=== PATIENT | male | born 1970 | race Caucasian/White ===

== ENCOUNTER 2016-10-09 11:02 | Emergency (ER) | payer OTHER ==
[~2016-10-09] VITALS: Ht 172.7 cm; Wt 65.8 kg
[2016-10-09] MEDS ORDERED: ZIPR80CA2 PO (11:09)
[2016-10-09] MEDS ORDERED: DIPH,PERTUSS(ACELL),TET VAC/PF 0.5 ML IM-VACC ONE ×2 (12:09→12:30)
[2016-10-09] MEDS ORDERED: IBUPROFEN 200 MG TABLET ONE (12:09)
[2016-10-09 12:23] LABS: HEMOGLOBIN 14.1 g/dL (13.7-18.0)
[2016-10-09] MEDS ORDERED: IBUPROFEN 200 MG TABLET PO ONE (12:30)
[2016-10-09 13:54] VITALS: BP 100/61
== END 2016-10-09 13:56 | disposition home or self-care (01) ==
LOC: ED 13:50
DX: L03.116 Cellulitis of left lower limb (principal); M70.42 Prepatellar bursitis, left knee; B99.9 Unspecified infectious disease; F17.210 Nicotine dependence, cigarettes, uncomplicated
CPT/HCPCS: 36415; 85025; 90471; 90715

== ENCOUNTER 2018-12-05 11:44 | Emergency (ER) | payer SELFPAY ==
[~2018-12-05] VITALS: Ht 175.3 cm; Wt 75.0 kg
[~2018-12-05 11:44] MED LIST: ZIPR80CA2 PO
[2018-12-05 11:51] VITALS: BP 116/83
[2018-12-05] MEDS ORDERED: ZIPRASIDONE 20MG CAPSULE PO SCH (12:00)
--- NOTE | 2018-12-05 12:18 | NUR ---
ASSUMING PT CARE AT THIS TIME. PT RESTING ON [facility]. ALL SAFETY MEASURES OBTAINED. SITTER AT DOORWAY.L
--- NOTE | 2018-12-05 12:21 | NUR ---
48 Y/O MALE BIB AMBULANCE AND [employer] ON LEGAL HOLD. PER PT "I WAS TRESPASSING AT THE POLICE STATION AND THEY BROUGHT ME HERE FOR THAT." PT DENIES HI/SI. NO C/O N/V/D, TRAUMA, SYNCOPE, CP. PT ROOM SECURED. SITTER AT DOOR, PT WITHIN FULL VIEW. WILL CONTINUE TO MONITOR.
[2018-12-05 12:38] LABS: ALBUMIN 3.5 g/dL (3.4-5.0); ANION GAP 9 mmol/L (5-15); CALCIUM 8.7 mg/dL (8.5-10.1); CHLORIDE 104 mmol/L (98-107); SALICYLATE LEVEL 2.4 mg/dL (2.8-20.0)
--- NOTE | 2018-12-05 12:38 | NUR ---
ASSISTED PT WITH URINAL.PT UNABLE TO PROVIDE URINE SAMPLE AT THIS TIME. WILL CONTINUE TO MONITOR.
[2018-12-05] MEDS ORDERED: ZIPRASIDONE 20MG CAPSULE ONE (12:39)
[2018-12-05 12:41] LABS: ACETAMINOPHEN < 2 mcg/mL (10-30); ALANINE AMINOTRANSFERASE 89 U/L (12-78); ALKALINE PHOSPHATASE 75 U/L (45-117); BILIRUBIN,TOTAL 0.8 mg/dL (0.2-1.0); CREATININE 0.74 mg/dL (0.7-1.3); TOTAL PROTEIN 6.2 g/dL (6.4-8.2)
[2018-12-05 12:49] LABS: BASOPHILS # (AUTO) 0.05 x10^3/uL (0-0.1); BASOPHILS % (AUTO) 1 % (0-1); EOSINOPHILS # (AUTO) 0.03 x10^3/uL (0-0.4); EOSINOPHILS % (AUTO) 0 % (1-7); LYMPHOCYTES % (AUTO) 23 % (22-44); MD NO; MEAN CORPUSCULAR HEMOGLOBIN 29.4 pg (27.5-34.5); MEAN CORPUSCULAR HGB CONC 32.4 g/dL (33.2-36.2); MEAN CORPUSCULAR VOLUME 90.9 fL (81-97); MEAN PLATELET VOLUME 7.5 fL (7.4-10.4); MONOCYTES # (AUTO) 1.05 x10^3/uL (0.2-0.8); MONOCYTES % (AUTO) 11 % (2-9); NEUTROPHILS # (AUTO) 6.04 x10^3/uL (1.8-6.8); NEUTROPHILS % (AUTO) 65 % (42-75); PLATELET COUNT 360 x10^3/uL (130-400); RED BLOOD COUNT 4.56 x10^6/uL (4.38-5.82); RED CELL DISTRIBUTION WIDTH 13.5 % (9.4-14.8)
--- NOTE | 2018-12-05 13:46 | NUR ---
PT NOW SLEEPING ON [employer]. NO ACUTE DISTRESS NOTED. ALL SAFETY MEASURES OBTAINED. SITTER AT DOORWAY.
--- NOTE | 2018-12-05 13:48 | NUR ---
LATE ENTRY FOR 1330: PT UNABLE TO GIVE URINE SAMPLE. PT WAS GIVEN URINAL TO TRY AGAIN. PT WAS ALSO GIVEN WATER.
--- NOTE | 2018-12-05 14:52 | NUR ---
UA TO LAB. DIET TRAY ORDERED FOR PT. PT SITTING ON GURNEY. NO ACUTE DISTRESS NOTED. PT TALKS TO HIMSELF AT TIMES. ALL SAFETY MEASURES OBTAINED.
--- NOTE | 2018-12-05 15:05 | NUR ---
DIET TRAY DELIVERED.
[2018-12-05] MEDS ORDERED: LORazepam 1MG TABLET ONE (15:16)
[2018-12-05] MEDS ORDERED: LORazepam 1MG TABLET PO ONE (15:30)
[2018-12-05 15:31] LABS: AMPHETAMINE SCREEN, URINE Positive (Negative); BARBITURATE SCREEN, URINE Negative (Negative); BENZODIAZEPINE SCREEN, URINE Positive (Negative); CANNABINOID SCREEN, URINE Positive (Negative); COCAINE SCREEN, URINE Negative (Negative); METHADONE SCREEN, URINE Negative (Negative); OPIATE SCREEN, URINE Negative (Negative)
--- NOTE | 2018-12-05 16:31 | NUR ---
SW HAS PLACED TELE PSYCH BEDSIDE. PT VERBALIZES UNDERSTANDING REGARDING SPEAKING TO THE DR WHEN HE/SHE COMES ON. NO ACUTE DISTRESS NOTED. PT GIVEN SOCKS AND WARM BLANKET. NO NEEDS REQUESTED AT THIS TIME
--- NOTE | 2018-12-05 17:34 | NUR ---
Patient/Caregiver given discharge instructions and they have confirmed that they understand the instructions. Patient ambulatory with steady gait. PT STILL DENIES HI/SI. PT LEFT WITH ALL PERSONAL BELONGINGS. PT GIVEN TAXI VOUCHER.
== END 2018-12-05 17:55 | disposition home or self-care (01) ==
LOC: ED 12:50
DX: F15.959 Other stimulant use, unspecified with stimulant-induced psychotic disorder, unspecified (principal); F20.0 Paranoid schizophrenia; F31.9 Bipolar disorder, unspecified
CPT/HCPCS: 36415; 80053; 80307; 85025; 99284

== ENCOUNTER 2019-06-11 03:17 | Emergency (ER) | payer MEDICARE ==
[~2019-06-11] VITALS: Ht 172.7 cm; Wt 62.7 kg
[~2019-06-11 03:17] MED LIST changes: +DOXE25CA PO; +FLUP2.5T PO; +HYDR50TA13 PO; +NICO-486 TD; +PANT40TA5 PO; +QUET200T PO
[2019-06-11 03:23] VITALS: BP 108/74
--- NOTE | 2019-06-11 03:40 | NUR ---
INITIAL CONTACT WITH PT. ASSESSMENT DONE. PT WAITING TO BE SEEN BY .
[2019-06-11] MEDS ORDERED: ACETAMINOPHEN 325 MG TABLET PO ONE (04:00)
[2019-06-11] MEDS ORDERED: ACETAMINOPHEN 325 MG TABLET ONE (04:42)
--- NOTE | 2019-06-11 04:49 | NUR ---
PT DC'D HOME WITH RX X 1 AND UNDERSTANDING OF INSTRUCTIONS. PT PROVIDED WITH BUS PASS.
== END 2019-06-11 04:51 | disposition home or self-care (01) ==
LOC: ED 03:43
DX: G43.909 Migraine, unspecified, not intractable, without status migrainosus (principal); R94.31 Abnormal electrocardiogram [ECG] [EKG]; Z72.9 Problem related to lifestyle, unspecified
CPT/HCPCS: 93005; 99283

== ENCOUNTER 2019-11-19 00:52 | Emergency (ER) | payer MEDICARE ==
[~2019-11-19] VITALS: Ht 170.2 cm; Wt 71.5 kg
[~2019-11-19 00:52] MED LIST changes: -FLUP2.5T PO; +FLUP2.5T3 PO; -HYDR50TA13 PO; +HYDR50TA99 PO
[2019-11-19 00:53] VITALS: BP 117/72
--- NOTE | 2019-11-19 01:22 | NUR ---
TANNA RN: ERP IN TO [facility] PT.
== END 2019-11-19 01:53 | disposition home or self-care (01) ==
LOC: ED 01:22
DX: R06.00 Dyspnea, unspecified (principal); Z72.9 Problem related to lifestyle, unspecified; R94.31 Abnormal electrocardiogram [ECG] [EKG]; F17.200 Nicotine dependence, unspecified, uncomplicated
CPT/HCPCS: 93005; 99283

== ENCOUNTER 2020-01-05 11:14 | Emergency (ER) | payer MEDICARE ==
[~2020-01-05] VITALS: Ht 167.6 cm; Wt 63.0 kg
[2020-01-05 11:25] VITALS: BP 105/67
--- NOTE | 2020-01-05 12:16 | NUR ---
TASK RN: FIRST CONTACT WITH PT. Pt agitated and yelling at EDRN requesting "a shot of abilify...I can't get into [facility] until Wednesday...I need this medication filled here...I can't pay for this...I need a cookie, I need a sandwich...give me food...". Pt provided snacks, water, d/c paperwork, Rx paperwork, medication assistance information, and mental health services information paper. Pt continued to express agitation to ED RN. EDMD aware. EDMD states pt is poor historian and exhibiting inappropriate behaviors in room when ED MD was in room with pt. Security escorted pt to d/c desk. Pt left with all personal belongings and above provided paperwork and food.
--- NOTE | 2020-01-05 12:27 | NUR ---
Pt uncooperative with EDRN and would not allow EDRN to perform physical assessment to examine "spider bite".
== END 2020-01-05 12:53 | disposition home or self-care (01) ==
LOC: ED 12:50
DX: L08.9 Local infection of the skin and subcutaneous tissue, unspecified (principal); F25.9 Schizoaffective disorder, unspecified
CPT/HCPCS: 99283

== ENCOUNTER 2020-01-06 07:51 | Emergency (ER) | payer MEDICARE ==
[~2020-01-06] VITALS: Ht 172.7 cm; Wt 61.7 kg
--- NOTE | 2020-01-06 08:03 | NUR ---
NA X1
[2020-01-06 08:10] VITALS: BP 107/73
--- NOTE | 2020-01-06 08:42 | NUR ---
LEADERSHIP COACH: PT AMBULATORY WITH STEADY GAIT TO ROOM AT THIS TIME. ARLEN
[2020-01-06] MEDS ORDERED: ARIPIPRAZOLE 10 MG TABLET ONE (08:51)
[2020-01-06] MEDS ORDERED: ARIPIPRAZOLE 10 MG TABLET PO ONE (09:00)
== END 2020-01-06 09:21 | disposition home or self-care (01) ==
LOC: ED 09:15
DX: F20.9 Schizophrenia, unspecified (principal); R94.31 Abnormal electrocardiogram [ECG] [EKG]; Z76.0 Encounter for issue of repeat prescription; F17.200 Nicotine dependence, unspecified, uncomplicated
CPT/HCPCS: 93005; 99283

== ENCOUNTER 2020-01-07 03:11 | Emergency (ER) | payer MEDICARE ==
[~2020-01-07] VITALS: Ht 172.7 cm; Wt 63.0 kg
[~2020-01-07 03:11] MED LIST changes: -PANT40TA5 PO; +PANT40TA6 PO
[2020-01-07 03:13] VITALS: BP 112/70
--- NOTE | 2020-01-07 04:16 | NUR ---
pt nilx1
--- NOTE | 2020-01-07 04:23 | NUR ---
pt called in lobby for 2md time
--- NOTE | 2020-01-07 04:32 | NUR ---
pt called in lobby for 3rd time
== END 2020-01-07 04:34 | disposition left against medical advice (07) ==
LOC: ED 04:23
DX: M54.5 Low back pain (principal); Z53.21 Procedure and treatment not carried out due to patient leaving prior to being seen by health care provider